=== PATIENT | female | born 1990 ===

== ENCOUNTER → 2020-03-20 09:32 | Outpatient (BNVA) | payer OTHER, SELFPAY | PROVIDERS: PCP Nurse Practitioner Family; Visit Provider Advanced Practice Midwife | DX: Z76.89 Persons encountering health services in other specified circumstances (principal) ==

== ENCOUNTER 2020-03-27 13:07 | Outpatient (REF) | payer OTHER, SELFPAY | END 2020-03-27 13:08 | disposition home or self-care (01) | LOC: HO.LAB 13:07 | PROVIDERS: Visit Provider Internal Medicine | DX: Z20.828 Contact with and (suspected) exposure to other viral communicable diseases (principal) | CPT/HCPCS: C9803; U0003 ==

== ENCOUNTER 2020-04-08 10:42 | Outpatient (REF) | payer OTHER, SELFPAY | END 2020-04-08 10:43 | disposition home or self-care (01) | LOC: HO.LAB 10:42 | PROVIDERS: Visit Provider Internal Medicine | DX: Z20.828 Contact with and (suspected) exposure to other viral communicable diseases (principal) | CPT/HCPCS: U0003 ==

== ENCOUNTER 2020-09-03 09:24 | Emergency (ER) | payer OTHER, SELFPAY ==
--- NOTE | ~2020-09-03 | XR_ITS ---
EXAMINATION: XR CHEST CLINICAL INFORMATION: Covid like symptoms. COMPARISON: None TECHNIQUE: Frontal view of the chest was obtained. FINDINGS: No significant abnormality is noted involving the heart, lungs, mediastinum, bony thorax or soft tissues. XR/XR chest 1V IMPRESSION: Unremarkable chest examination.
[2020-09-03 09:33] VITALS: BP 114/79; PULSE 54; RESP 18; TEMP 36.1; O2SAT 98; BMI 28.3
--- NOTE | 2020-09-03 10:51 | PC.NURSE ---
Naso pharyngeal covid swab and strep swab obtained, sent to lab, results pending. Pt in chair in farrar, no cough noted, NAD.
--- NOTE | 2020-09-03 11:23 | ED.URI ---
HPI - URI/Sore Throat General Chief Complaint: Upper Respiratory Symptoms Stated Complaint: + COVID SYMPTONS Time Seen by Provider: 09/03/20 10:34 Source: patient Mode of arrival: ambulatory Limitations: no limitations History of Present Illness HPI Narrative: 29-year-old female presenting to the ED with complaints of intermittent headaches, nasal congestion, runny nose, sore throat with a productive cough with yellow/white colored sputum for the past few days worse today. Reports she was positive for COVID in April of 2020. Denies any recent travel or sick contacts. Reports that she was tested for COVID at an urgent care prior to arrival it was a rapid test and was negative. Denies any other symptoms complaints or concerns at this time. MD elicited complaint: cough, sore throat, rhinorrhea and nasal congestion Onset (ago): day(s) Consistency: constant and progressively worsening Severity: moderate Description of mucous: clear, watery and yellow Able to tolerate fluids by mouth: Yes Related Data Previous Rx's Medication Instructions Recorded acetaminophen 325 mg tablet 650 mg PO QID PRN 10 Days #30 tab 03/31/20 azithromycin 250 mg tablet 250 mg PO DAILY 5 Days #6 tab 07/16/20 cholecalciferol (vitamin D3) 50 50 mcg PO DAILY 30 Days #30 cap 07/16/20 mcg (2,000 unit) capsule acetaminophen [Tylenol Extra 1,000 mg PO QID PRN #14 tab 09/03/20 Strength] albuterol sulfate 1 inh INHALATION QID PRN #8.5 g 09/03/20 azithromycin See Rx Instructions .ROUTE 09/03/20 .COMPLEX #6 tab dexamethasone [Decadron] 6 mg PO DAILY 7 Days #10 tab 09/03/20 ibuprofen 800 mg PO Q8H PRN #14 tab 09/03/20 Allergies Allergy/AdvReac Type Severity Reaction Status Date / Time No Known Allergies Allergy Verified 03/20/20 09:24 Review of Systems Review of Systems: Constitutional : No Fever, + Chills, + fatigue, + Malaise ENT/Mouth : + sore throat, + runny nose Eyes: No Discharge Cardiovascular : No Chest Pain, No SOB Respiratory : + Cough, + Sputum, No Wheezing, No Smoke Exposure, No Dyspnea Gastrointestinal : No Nausea, No Vomiting, No Diarrhea Genitourinary : No irregular bleeding, No Dysuria, No Urinary Frequency, No Hematuria, No Urinary Incontinence, No Urgency, No Flank Pain, Musculoskeletal : + Myalgia Skin : No rash Neuro : No Headache Yes all other systems are reviewed and are negative [facility] Past Medical History Attestation statement: The following information was validated with the patient. 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 Viral meningitis Surgical History No history of previous surgery Family History Family History Father HTN (hypertension) Arthritis Asthma Mother HTN (hypertension) Migraine Diabetes mellitus Maternal Grandfather Liver cancer Maternal Aunt Breast cancer Social History Social History Alcohol intake: never Smoking Status: Never smoker Use of substances other than those prescribed or required for medical reasons: No Advance Directives: Yes Advance Directives Information Provided: No Advance Directives on File: No Gender identity: female Physical Exam Vital Signs: Vital Signs: Last Vital Signs Temp 97.0 F 09/03/20 09:33 Pulse 54 09/03/20 09:33 Resp 18 09/03/20 09:33 BP 114/79 09/03/20 09:33 Pulse Ox 98 09/03/20 09:33 Body Mass Index 28.3 vital signs have been reviewed as normal and appeared to be correct. Blood pressure normal. Heart rate normal. Respiration rate normal. Temperature normal. Oxygen saturation normal. Appearance: Alert. Oriented X3. No acute distress. Head: Normal external exam. Normocephalic. Atraumatic. No Daugherty signs noted. No raccoon eyes noted Eyes: PERRLA. EOMI. Conjunctiva and sclera normal. Eyelids normal. ENT: EAC normal. TM's Normal. Pharynx normal. Uvula midline. Moist mucous membranes. No trismus noted. No drooling noted. No muffled voice noted. Neck: Normal inspection. Neck supple. FROM. No adenopathy. Thyroid Normal. No meningeal signs. No neck mass noted. CVS: Normal heart rate and rhythm. Heart sound normal. No murmurs noted. Pulses normal throughout. Respiratory: No respiratory distress. Painless inspiration. Breath sounds normal. No wheezes/rales/rhonchi noted. Chest nontender. No accessory muscle usage noted or decreased air movement noted. Abdomen: Soft and nontender. Bowel sounds normal in all 4 quadrants. No distention noted. No organomegaly noted. No visible injury noted. Back: No CVA tenderness. Full range of motion noted. Skin: Skin warm and dry. Normal skin color. Normal skin turgor. No rashes/lesions/lacerations noted. Extremities: No lower extremity edema. Extremities exhibit normal range of motion. Extremities nontender. Neuro: Oriented X 3. No motor deficit. No sensory deficit. Reflexes normal. Course Course Course Narrative: 29-year-old female with URI symptoms. Nontoxic appearing. Tolerating secretions well. Vital signs are stable within normal limits. Lungs clear to auscultation. Chest x-ray negative for pneumonia or any other acute processes. Rapid strep negative. Will DC home with antibiotics and symptomatic treatment instructions to self isolate until negative COVID results and 7-10 days have passed since her symptoms have started. Patient understands agrees with this plan and to follow up her primary care provider. MDM - URI/Sore Throat Medical Records Attestation: I reviewed the patient's medical records. Lab Data Attestation: I reviewed the patient's lab results. Imaging Data Chest x-ray: Attestation: I personally reviewed and interpreted this imaging study as follows: Radiologist's impression: FINDINGS: No significant abnormality is noted involving the heart, lungs, mediastinum, bony thorax or soft tissues. XR/XR chest 1V IMPRESSION: Unremarkable chest examination. Discharge Plan Discharge Clinical Impression: Upper respiratory infection Patient Disposition: Home, Self-Care Instructions: Upper Respiratory Infection (ED), COVID-19 (Coronavirus Disease 2019) (ED) Additional Instructions: Based on your symptoms and history we have sent a COVID-19. Although your RESULT IS PENDING at this time. RESULTS should return within 72 hours. At this time you will be contacted with either NEGATIVE OR POSITIVE results. -Please wait until we contact you for your results. At this time you will be okay for discharge. Please plan for self quarantine for up to 14 days. Do not expose yourself to others. You may not go to work. If testing does come back negative you may return to activities as long as you are no longer having any symptoms for at least 3 days. Please continue to follow cold instructions and wash your hands frequently. You may take Tylenol as directed on the bottle for pain or fever. Patient seen in the emergency department on 09/03/2020 and should be excused from work until negative test results AND until 72 hours without any symptoms AND at least 10 days have passed since symptoms first appeared or since last exposure to COVID-19 positive patient CDC Guidelines for home isolation: - Stay away from others - WEAR A MASK if you are sick AND STAY HOME - Cover your mouth and nose with a tissue when you cough or sneeze. Dispose of tissues in a lined trash can and wash your hands immediately with soap and water for at least 20 seconds. If soap and water are not available, clean hands with alcohol-based hand body and frame man that contains at least 60% alcohol. - Clean your hands often with soap and water for at least 20 seconds - Avoid touching your eyes, nose and mouth with unwashed hands - Do not share dishes, drinking glasses, cups, eating utensils, towels, or bedding with other people in your home. After using these items, wash them thoroughly with soap and water or put in the green marketing specialist. - Clean high-touch surfaces in your isolation area ( sick room and bathroom) every day; let a caregiver clean and disinfect high-touch surfaces in other areas of the home. Clean the area or item with soap and water or another detergent if it is dirty. Then, use a household disinfectant. - Limit contact with pets and animals: If you must care for a pet, wash your hands before and after interacting with them). Prescriptions: New azithromycin 250 mg tablet See Rx Instructions .ROUTE .COMPLEX Qty: 6 RF: 0 acetaminophen [Tylenol Extra Strength] 500 mg tablet 1,000 mg PO QID PRN (Reason: fever or pain) Qty: 14 RF: 0 albuterol sulfate 90 mcg/actuation HFA aerosol inhaler 1 inh inhalation QID PRN (Reason: shortness of breath or wheezing) Qty: 8.5 RF: 0 ibuprofen 800 mg tablet 800 mg PO Q8H PRN (Reason: pain) Qty: 14 RF: 0 dexamethasone [Decadron] 6 mg tablet 6 mg PO DAILY 7 Days Qty: 10 RF: 0 No Action acetaminophen [Tylenol] 325 mg tablet 650 mg PO QID PRN (Reason: pain) 10 Days Qty: 30 RF: 0 azithromycin 250 mg tablet 250 mg PO DAILY 5 Days Qty: 6 RF: 0 cholecalciferol (vitamin D3) 50 mcg (2,000 unit) capsule 50 mcg PO DAILY 30 Days Qty: 30 RF: 0 Referrals: Physician,Unknown [Primary Care Provider] - 2 days (your pcp) Stand Alone Forms: Work/School Release Print Language: Irish
[2020-09-03 12:08] LABS: Influenza A PCR NEGATIVE (Negative); Influenza B PCR NEGATIVE (Negative); Resp Syncy Virus RNA Qual PCR NEGATIVE (Negative); SARS COV2 PCR INHOUSE NEGATIVE (Negative)
== END 2020-09-03 11:43 | disposition home or self-care (01) ==
PROVIDERS: Physician Assistant Medical; Emergency Provider Emergency Medicine Emergency Medical Services
DX: J06.9 Acute upper respiratory infection, unspecified (principal); Z20.822 Contact with and (suspected) exposure to COVID-19; J02.9 Acute pharyngitis, unspecified
CPT/HCPCS: 0241U; 36415; 71045; 87071; 87880; 99283; 99284

== ENCOUNTER 2020-10-13 16:24 | Emergency (ER) | payer OTHER, SELFPAY ==
--- NOTE | ~2020-10-13 | XR_ITS ---
EXAMINATION: XR CHEST CLINICAL INFORMATION: Cough and shortness of breath COMPARISON: 09/03/2020 TECHNIQUE: 2 views of the chest were obtained. FINDINGS: No significant abnormality is noted involving the heart, lungs, mediastinum, bony thorax or soft tissues. XR/XR chest 2V IMPRESSION: Unremarkable examination.
[2020-10-13 16:39] VITALS: BP 137/74; PULSE 95; RESP 16; TEMP 37.1; O2SAT 96; BMI 29.5
[2020-10-13 17:44] LABS: COVID-19 Test Negative (Negative); IDNOW Serial# 9DD0AD1C
--- NOTE | 2020-10-13 20:29 | ED_ITS ---
HPI - URI/Sore Throat General Chief Complaint: Upper Respiratory Symptoms Stated Complaint: sob Time Seen by Provider: 10/13/20 19:31 Source: patient Mode of arrival: ambulatory Limitations: no limitations History of Present Illness HPI Narrative: 30-year-old female here with complaints of chills, body aches, cough, productive with yellow sputum. Episode of shortness of breath after a coughing episode today but no shortness of breath at rest or with exertion. No chest pain, leg swelling or pain. Related Data Previous Rx's Medication Instructions Recorded azithromycin See Rx Instructions .ROUTE 10/13/20 .COMPLEX #6 tab benzonatate [Tessalon Perles] 100 mg PO BID PRN #14 cap 10/13/20 Allergies Allergy/AdvReac Type Severity Reaction Status Date / Time No Known Allergies Allergy Verified 10/07/20 15:13 Review of Systems Review of Systems: Yes all other systems are reviewed and are negative Constitutional: Constitutional: Reports no additional constitutional complaints, Reports body ache(s), Reports chills, Denies fever(s), Denies headache(s) and Denies weakness Eyes: Eyes: Reports no additional eye complaints and Denies change in vision ENT: Reports system reviewed and no additional complaints, except as documented, Denies dizziness, Denies headache(s), Denies nasal congestion, Denies nasal discharge and Denies neck pain Cardiovascular: Cardiovascular: Reports no additional cardiovascular complaints, Denies chest pain, Denies leg edema and Denies dyspnea Respiratory: Respiratory: Reports no additional respiratory complaints, Reports cough and Denies dyspnea Gastrointestinal: Gastrointestinal: Reports no additional gastrointestinal complaints, Denies abdominal pain, Denies diarrhea, Denies nausea and Denies vomiting Genitourinary: Genitourinary: Reports no additional female genitourinary complaints and Denies urinary incontinence Musculoskeletal: Musculoskeletal: Reports no additional musculoskeletal complaints, Denies back pain, Denies arthralgias, Denies joint swelling, Denies neck pain, Denies numbness and Denies tingling Integumentary/Breasts: Skin/Breast: Reports system reviewed and no additional complaints, except as docu and Denies rash Neurologic: Denies Abnormal speech present, Denies dizziness, Denies headache(s), Denies numbness, Denies tingling and Denies weakness [facility] Past Medical History Attestation statement: The following information was validated with the patient. Source: old records reviewed and nursing notes reviewed Medical History Iron deficiency anemia Irregular menstrual cycle Lower back pain Migraine with aura [id number] syndrome Viral meningitis Surgical History No history of previous surgery Family History Family History Father HTN (hypertension) Arthritis Asthma Mother HTN (hypertension) Migraine Diabetes mellitus Maternal Grandfather Liver cancer Maternal Aunt Breast cancer Social History Social History Alcohol intake: never Patient Tobacco Use Status: Never used Tobacco Second Hand Smoke Exposure: No Advance Directives: No Patient : No Gender identity: female Physical Exam Vital Signs: Vital Signs: Last Vital Signs Temp 98.7 F 10/13/20 16:39 Pulse 95 10/13/20 16:39 Resp 16 10/13/20 16:39 BP 137/74 10/13/20 16:39 Pulse Ox 96 10/13/20 16:39 Body Mass Index 29.5 Const: General: cooperative, healthy appearing, comfortable and no acute distress Orientation/consciousness: patient oriented x3 Limitations: no limitations HENMT: Head: Yes normal to inspection Ears: hearing grossly normal bilaterally General nose exam: Normal external nose present Face and sin us: Yes normal facial exam Mouth: Normal oral and palatal mucosa present Throat: Yes posterior oropharynx normal Eyes: General: appearance normal, both eyes and all related structures Pupils: Equal, round and reactive pupils present Neck: Neck: Yes normal visual inspection Chest: Chest palpation & inspection: normal inspection of the chest Resp: Effort & Inspection: normal respiratory effort Auscultation: clear to auscultation bilaterally Cardio: Rate: regular rate Rhythm: regular rhythm Peripheral pulses: Peripheral pulses 2+ throughout GI: Inspection: Yes normal to inspection Palpation (GI): Soft to palpation and nontender Auscultation: normal bowel sounds Back/Spine/Pelvis: Thoracic/Lumbar Spine: thoracic and lumbar spine normal to inspection Skin: General skin exam: no rashes or lesions noted Neuro: General: patient oriented x3, no focal motor deficits and normal sensation to monofilament Cranial nerves: Yes Equal, round and reactive pupils present Cognition (Neuro): normal cognition Speech: No Abnormal speech present Gait exam (Neuro): Normal gait present Motor exam (neuro): 5/5 motor strength present throughout Extrem: General: Yes normal to inspection Course Course Course Narrative: 30-year-old female here with complaints of cough with yellow sputum, chills, body aches and episode of shortness of breath with coughing episode with symptoms times several days. No fevers or chills. Stable vital signs. Will check COVID screen and chest x-ray. -COVID screen negative. Chest x-ray shows no acute finding. Patient tells me he has history of bronchitis with similar episodes which improved with antibiotics. Will give course of antibiotics. Recommend supportive care. Recommend retesting for COVID in several days if she continues to have symptoms. Reviewed worrisome signs and symptoms of when to return to the emergency department. Comfortable discharge home. MDM - URI/Sore Throat Medical Records Attestation: I reviewed the patient's medical records. Lab Data Attestation: I reviewed the patient's lab results. Labs: Lab Results 10/13/20 Range/Units 16:49 COVID-19 ([facility]) Negative (Negative) COVID-19 Clin Com See Note Imaging Data Chest x-ray: Attestation: I personally reviewed and interpreted this imaging study as follows: Radiologist's impression: [address] [id number] ReportSigned Patient: Jillian RamírezMR#: [id number]: [id number]:[id number]/Sex: 30 / FADM Date: 10/13/20Loc: [email or web address] Dr: Ordering Physician: MATTEO HUGHES NP Date of Service: 10/13/20 Procedure(s): XR chest 2V Accession Number(s): [id number] cc: MATTEO HUGHES NP~ EXAMINATION: XR CHEST CLINICAL INFORMATION: Cough and shortness of breath COMPARISON: 09/03/2020 TECHNIQUE: 2 views of the chest were obtained. FINDINGS: No significant abnormality is noted involving the heart, lungs, mediastinum, bony thorax or soft tissues. XR/XR chest 2V IMPRESSION: Unremarkable examination. Discharge Plan Discharge Clinical Impression: Bronchitis Patient Disposition: Home, Self-Care Instructions: Acute Bronchitis (ED) Additional Instructions: Increase fluids, rest Your COVID screen was negative today. Your should get retested in a few days if you continue to have symptoms Prescriptions: New azithromycin 250 mg tablet See Rx Instructions .ROUTE .COMPLEX Qty: 6 RF: 0 benzonatate [Tessalon Perles] 100 mg capsule 100 mg PO BID PRN (Reason: cough) Qty: 14 RF: 0 Referrals: Physician,Unknown [Primary Care Provider] - 2 days Stand Alone Forms: Work/School Release Interventions: ED Discharge Assessment Last Done: 10/13/20 20:19 Discharge Date/Time: 10/13/20 20:20
== END 2020-10-13 20:20 | disposition home or self-care (01) ==
PROVIDERS: Emergency Provider Internal Medicine
DX: J20.8 Acute bronchitis due to other specified organisms (principal); M79.10 Myalgia, unspecified site; R05 Cough; R06.02 Shortness of breath; Z20.822 Contact with and (suspected) exposure to COVID-19; Z79.899 Other long term (current) drug therapy
CPT/HCPCS: 36415; 71046; 87635; 99283

== ENCOUNTER 2024-08-28 12:38 | Outpatient (AMB) | payer OTHER, SELFPAY ==
--- NOTE | 2024-08-28 12:40 | MHC.PC.OV ---
Vital Signs 08/28/24 12:41 Height 5 ft 1 in Weight 150 lb BMI 28.3 BP 122/70 Blood Pressure Location Rt brachial Position Sitting Intake Visit Reasons: annual exam/kwadwo Mayuri Intake Note: Patient here for annual exam/ transfer of care Insurance Claims Adjuster Required: No Accompanied by: Self / Same As Patient Allergies RAISIN Allergy (Severe, Uncoded 08/28/24 12:57) ANAPHYLAXIS Medication List - Last Reconciled 08/28/24 by Brie Iyer MD etonogestrel (Nexplanon) subdermal Tobacco use date assessed: 08/28/24 Dental Screening Dental Screen Date: 08/28/24 Did you have a dental visit in the last 12 months?: No Did you have a dental problem in the last 6 months where you did not have access to dental care?: No Was dental information given to patient?: Patient has dentist HPI HPI Comments History of Present Illness Details The patient is a 33-year-old female presenting for her physical exam. She complaints of fatigue and back pain. She reports a history of feeling extremely tired and experiencing shortness of breath after minimal exertion. This fatigue intensified following an illness approximately two weeks ago, suspected to be related to either influenza or COVID-19, though the exact cause is unclear. She describes being active normally but now feels exhausted quickly. She has not been diagnosed with depression or anxiety and denies these conditions. The patient experiences back pain for which she previously took ibuprofen 800 mg. However, the dosage was reduced to 600 mg, which she feels is less effective. The exact duration of the back pain isn't specified, but she associates the high dosage of ibuprofen with better relief. She also experiences occasional nausea and suspects a possible vitamin D deficiency due to minimal sun exposure during winter months. Significant family medical history includes asthma, hypertension, and arthritis in her father, and diabetes, hypertension, and migraine in her mother. She reports no personal history of surgery and her current contraceptive method is Nexplanon. She denies smoking and alcohol consumption. - Pap smear completed last year with normal results. - Discussion about possible vaccinations, though the patient declined receiving them this day. - Recommended routine health checkups, particularly for anemia evaluation including iron studies and vitamin D levels. - Discussed the option for nurse visits for vaccinations and other follow-up care. - Recommended rechecking cholesterol, blood sugar, kidney, and liver functions. [facility] Medical History (Updated 08/28/24 @ 13:47 by Brie Iyer MD) [id number] syndrome control counseling Migraine with aura Irregular menstrual cycle Iron deficiency anemia Viral meningitis Lower back pain Surgical History No history of previous surgery Family History Father HTN (hypertension) Arthritis Asthma Mother HTN (hypertension) Migraine Diabetes mellitus Maternal Grandfather Liver cancer Maternal Aunt Breast cancer Social History Housing: Apartment Alcohol intake: never Patient Tobacco Use Status: Never used Tobacco e-Cigarette/Vaping Use: Never Used Second Hand Smoke Exposure: No service: No Current occupational status: employed Current occupational exposures/hazards: No Gender identity: Female Cognitive needs: No Hearing needs: No Vision needs: No Female Reproductive History Menstrual Age of Menarche: 9 Questionnaire PHQ-9 Over the last 2 weeks, how often have you been bothered by any of the following problems? 1. Little interest or pleasure in doing things: not at all 2. Feeling down, depressed, or hopeless: not at all 3. Trouble falling or staying asleep, or sleeping too much: not at all 4. Feeling tired or having little energy: not at all 5. Poor appetite or overeating: not at all 6. Feeling bad about yourself - or that you are a failure or have let yourself or your family down: not at all 7. Trouble concentrating on things, such as reading the newspaper or watching television: not at all 8. Moving or speaking so slowly that other people could have noticed. Or the opposite - being so fidgety or restless that you have been moving around a lot more than usual: not at all 9. Thoughts that you would be better off or of hurting yourself in some way: not at all Total score: 0 Depression Screening Interpretation: Negative Depression Screening Done: Yes 36949 - PHQ-9 Billing: Yes Source: Developed by Drs. Eric Christianson, Jyothi Hallman, Tone Messer and colleagues, with an educational stephanie from [employer]. Thrive Questionnaire Date Thrive assessed: 08/28/24 I am a: Patient What is your living situation today?: I have a steady place to live Within the past 12 months, did the food you bought not last and you didn't have the money to get more?: Often true Within the past 12 months, did you worry whether your food would run out before you got money to buy more?: Sometimes True Do you have trouble paying for medicines?: No Do you have trouble getting transportation to medical appointments?: No Do you have trouble paying your heating and electricity bill?: No Do you have trouble taking care of your child, family member or friend?: No Do you have trouble with day-to-day activities such as bathing, preparing meals, shopping, managing finances, etc.?: No Are you currently unemployed and looking for a job?: No Are you interested in more education?: No Please select the resources that you would like help with: None Currently or been in a relationship where the following occur: I choose not to answer THRIVE Score: 2 AUDIT C Alcohol Use Questionnaire (AUDIT-C) 1. How often do you have a drink containing alcohol?: Never Total Score: 0 Score Reviewed/Action Taken: No DOLLY-7 AMB Questionnaire DOLLY-7 Date DOLLY - 7 assessed: 08/28/24 Feeling nervous, anxious, or on edge: 0 = Not at all Not being able to stop or control worryin = Not at all Worrying too much about different things: 0 = Not at all Trouble relaxin = Not at all Being so restless that it is hard to sit still: 0 = Not at all Becoming easily annoyed or irritable: 0 = Not at all Feeling afraid as if something awful might happen: 0 = Not at all Total DOLLY-7 score (0-4 normal; 5-9 mild; 10-14 moderate; 15-21 severe): 0 Source: Developed by Drs. Eric Christianson, Jyothi Hallman, Tone Messer and colleagues, with an educational stephanie from [employer]. DOLLY-7 Assessment Billing DOLLY-7 Assessment Tool: DOLLY-7 Assessment 77288 Review of Systems Const All systems reviewed & are unremarkable except as noted in HPI and below Card Denies chest pain at rest, Denies chest pain with activity, Denies edema, Denies irregular heart rhythm, Denies claudication, Denies dyspnea, Denies dyspnea on exertion, Denies orthopnea, Denies paroxysmal nocturnal dyspnea and Denies slow heart rate Resp Denies cough, Denies dyspnea and Denies dyspnea on exertion GI Denies abdominal pain, Denies change in bowel habits, Denies excessive flatus, Denies nausea and Denies vomiting Denies urinary incontinence, Denies urinary hesitancy and Denies urinary urgency Musc Denies abnormal gait, Denies atrophy, Denies deformity and Denies limited range of motion Skin/Breast Denies bleeding lesions, Denies changing lesions and Denies rash Neuro Denies abnormal gait, Denies behavioral changes and Denies lack of coordination Psych Denies behavioral changes Physical exam (Primary Care) Vital Signs: Last Vital Signs BP 122/70 08/28/24 12:41 BMI result Body Mass Index 28.3 Tobacco/Smoking Status: Tobacco use Status Tobacco use date assessed 08/28/24 08/28/24 12:45 Patient Tobacco Use Status Never used Tobacco 08/28/24 12:45 e-Cigarette/Vaping Use Never Used 08/28/24 12:45 PHQ-9: PHQ-9 Score PHQ-9: Total score 0 08/28/24 13:01 Depression Screening Interpretation: Negative Thrive Assessment: Date of Thrive Assessment Date Thrive assessed 08/28/24 08/28/24 12:45 Currently or been in a relationship where the following occur: I choose not to answer [facility] Head: Yes normal to inspection, Yes normocephalic and Yes atraumatic Ears: external ears normal Eyes General: appearance normal, both eyes and all related structures Eyelids: Yes eyelids normal Conjunctivae: conjunctivae normal Neck Neck: Yes normal visual inspection and Yes supple Resp Effort & Inspection: normal respiratory effort Auscultation: clear to auscultation bilaterally Cardio Jugular venous distension: no JVD Rate: regular rate Rhythm: regular rhythm Heart sounds: S1 normal heart sound present and S2 normal heart sound present GI Inspection: Yes normal to inspection Palpation (GI): Soft to palpation and nontender Auscultation: normal bowel sounds Skin General skin exam: no rashes or lesions noted Neuro General: no focal motor deficits Extrem General: Yes full ROM Psych Appearance: grossly normal Coding Level of Care Code Est Pt Level 3 (59257) Est Pt Prev Care 18-39y(81639) Diagnoses Physical exam Z00.00 Lower back pain M54.5 Chronic fatigue R53.82 Additional Codes DOLLY-7 Assessment Billing - DOLLY-7 Assessment Tool: DOLLY-7 Assessment 97413 ([id number]) PHQ-9 - 22328 - PHQ-9 Billing: Yes ([id number]) Time Spent (min) 33 Assessment & Plan Assessment & Plan (1) Physical exam: Code(s): Z00.00 - Encounter for general adult medical examination without abnormal findings Category: Medical (2) Lower back pain: Code(s): M54.5 - Low back pain Category: Medical (3) Chronic fatigue: Code(s): R53.82 - Chronic fatigue, unspecified Category: Medical Plan Considering fatigue and probable vitamin D deficiency, I plan to evaluate vitamin D levels and recommend appropriate supplements. Back pain management will continue with ibuprofen 800 mg. Ensuring all regular health evaluations are up-to-date, including cardiovascular and metabolic screenings, remains crucial. The patient declined vaccinations at this visit but has been advised to schedule a nurse visit if reconsidered.: Patient was informed and verbally consented to the use of an ambient scribe for clinic note documentation during this visit. I discussed with the patient the likelihood of mild anemia and its contribution to reported fatigue. We explored the initial results of a hemoglobin measure of 11.9 g/dL and the need for detailed iron studies and vitamin D levels assessment. The treatment plan includes specific supplementation based on vitamin deficiencies potentially identified. I emphasized the importance of appropriate dosing of medications for effective symptom management, particularly for back pain, highlighting ibuprofen 800 mg's benefit as previously reported by the patient. Anticipatory guidance was provided regarding health maintenance, and options for follow-up care through nurse visits were thoroughly explained. Orders: Orders Lipid Panel Today Z00.00 - Encounter for general adult medical examination without abnormal findings Complete Blood Count Auto Diff Today D64.9 - Anemia, unspecified Vitamin B12 and Folate Today E53.8 - Deficiency of other specified B group vitamins UA CC w/rflx Micro + Cult Today R30.0 - Dysuria Comprehensive Christmas. Panel Fast Today Z00.00 - Encounter for general adult medical examination without abnormal findings IRON PROFILE Today D64.9 - Anemia, unspecified Vitamin D 25-OH Total Today E55.9 - Vitamin D deficiency, unspecified Medications: New ibuprofen 800 mg PO Q8H PRN 90 tabs 2RF pain 30 days Discontinued ketorolac Patient received Toradol 30 IV in the ED Discontinued Reason: Patient Completed Course 10 mg PO Q6H 5 days PRN 20 tabs 0RF pain Patient Instructions: - Increase intake of iron-rich foods as preliminary management for possible anemia. - Consider vitamin D-rich foods and safe sun exposure to address potential vitamin D deficiency. - Take ibuprofen 800 mg as prescribed for back pain relief. - Return for further blood tests to assess anemia and vitamin D levels. - Consider scheduling a nurse visit for any vaccinations needed. - Follow up with any new or worsening symptoms, particularly increased fatigue or changes in back pain.
[2024-08-28 12:41] VITALS: BP 122/70; BMI 28.3
== END 2024-08-28 13:07 | disposition home or self-care (01) ==
LOC: HO.HMCH 12:38
PROVIDERS: Visit Provider Internal Medicine
DX: Z00.00 Encounter for general adult medical examination without abnormal findings (principal); R53.82 Chronic fatigue, unspecified; M54.50 Low back pain, unspecified

== ENCOUNTER → 2024-08-28 12:38 | Outpatient (BNVA) | payer OTHER, SELFPAY | PROVIDERS: Visit Provider Internal Medicine | DX: Z00.01 Encounter for general adult medical examination with abnormal findings (principal); M54.50 Low back pain, unspecified; R53.82 Chronic fatigue, unspecified; I10 Essential (primary) hypertension; J45.909 Unspecified asthma, uncomplicated | CPT/HCPCS: 96127; 99212; 99395 ==